=== PATIENT | male | born 1960 | race African-American/Black ===

== ENCOUNTER 2022-07-16 18:01 | Observation (INO) ==
[2022-07-16 18:27] LABS: Basophils % 0.4 % (0.0-0.8); Eosinophils # 0.1 10*3/uL (0.0-0.87); Eosinophils % 1.2 % (0.00-10.9); Hematocrit 43.4 VOL% (42.0-52.0); Hemoglobin 15.1 GM/DL (14.0-18.0); Immature Granulocytes % 0.1 %; Immature Granulocytes Absolute 0.01 #; Lymphocytes # 2.8 10*3/uL (1.4-4.0); Lymphocytes % 41.1 % (21.2-54.2); Mean Corpuscular HGB Conc 34.8 GM/DL (32-36); Mean Corpuscular Volume 84.3 FL (87-102); Mean Platelet Volume 10.1 FL (9.6-12.0); Monocytes # 0.4 10*3/uL (0.11-0.8); Monocytes % 6.2 % (1.7-12.7); Platelet Count 288 T/CUMM (130-400); Red Blood Count 5.15 MC/CUMM (3.8-5.5); Red Cell Distribution Width 13.4 % (9.3-17.3); White Blood Count 6.9 T/CUMM (4-12)
[2022-07-16 18:48] LABS: Albumin 4.5 G/DL (3.4-5.0); Bilirubin,Total 0.4 MG/DL (0.20-1.00); Osmolality,Calculated 276.1 MOS/KG (273-304); Potassium 3.8 MMOL/L (3.5-5.1); Total Protein 8.3 G/DL (6.4-8.2)
[2022-07-16] MEDS ORDERED: NITROGLYCERIN SL 0.4 MG TABLET SL PRN (18:50)
[2022-07-16] MEDS ORDERED: ONDANSETRON 4 MG/2 ML VIAL IV ONE (18:57)
[2022-07-16] MEDS ORDERED: fentaNYL 100 MCG/2 ML VIAL IV STA (18:57)
[2022-07-16] MEDS ORDERED: DOCUSATE SODIUM 100 MG CAPSULE PO PRN (20:05)
[2022-07-16] MEDS ORDERED: DEXTROSE 50% 25 GM/50 ML VIAL IV PRN (20:05)
[2022-07-16] MEDS ORDERED: GLUCAGON 1 MG VIAL IM PRN (20:05)
[2022-07-16] MEDS ORDERED: ONDANSETRON 4 MG/2 ML VIAL IV PRN (20:05)
[2022-07-16] MEDS ORDERED: ACETAMINOPHEN 325 MG TABLET PO PRN (20:05)
[2022-07-16] MEDS ORDERED: DEXTROSE 10% 250 ML BAG IV PRN (20:19)
[2022-07-16 20:34] LABS: Thyroid Stimulating Hormone 0.506 uIU/ml (0.358-3.74)
[2022-07-16] MEDS ORDERED: ATORVASTATIN 20 MG TABLET PO SCH (21:00)
[2022-07-16] MEDS: ASPIRIN 325 MG TABLET PO SCH (21:12)
[2022-07-16] MEDS: ENOXAPARIN 40 MG/0.4 ML SYRINGE SUBCUT SCH (21:13)
[2022-07-16] MEDS: METOPROLOL TARTRATE 25 MG TABLET PO SCH (21:13)
[2022-07-16] MEDS: INSULIN LISPRO 100 UNIT/ML SUBCUT SCH (23:33)
[2022-07-17 05:38] LABS: Basophils # 0.1 10*3/uL (0.0-0.2); Basophils % 0.7 % (0.0-0.8); Eosinophils # 0.3 10*3/uL (0.0-0.87); Eosinophils % 3.1 % (0.00-10.9); Hematocrit 40.6 VOL% (42.0-52.0); Immature Granulocytes % 0.2 %; Immature Granulocytes Absolute 0.02 #; Lymphocytes # 4.8 10*3/uL (1.4-4.0); Mean Corpuscular HGB Conc 34.5 GM/DL (32-36); Mean Corpuscular Volume 86.6 FL (87-102); Mean Platelet Volume 10.8 FL (9.6-12.0); Monocytes # 0.7 10*3/uL (0.11-0.8); Monocytes % 8.1 % (1.7-12.7); Neutrophils % 35.9 % (38.7-73.9); Platelet Count 258 T/CUMM (130-400); Red Blood Count 4.69 MC/CUMM (3.8-5.5); Red Cell Distribution Width 13.3 % (9.3-17.3); White Blood Count 9.1 T/CUMM (4-12)
[2022-07-17 05:55] LABS: Calcium 9.5 MG/DL (8.5-10.1); Osmolality,Calculated 278.7 MOS/KG (273-304); Potassium 3.5 MMOL/L (3.5-5.1); Risk Ratio 7.67; VLDL Cholesterol 48.2 MG/DL
[2022-07-17 07:24] LABS: Anisocytosis Slight; Atypical Lymphocytes Few; Eosinophils 3 % (0-10); Lymphocytes 58 % (20-55); Platelet Estimate Normal; Total Cells Counted 100
[2022-07-17] MEDS ORDERED: ALUM/MAG/SIMETH/LIDO VISC 1:1 30 ML BOTTLE PO ONE (08:17)
[2022-07-17] MEDS: INSULIN LISPRO 100 UNIT/ML SUBCUT SCH ×4 (08:20→20:58)
[2022-07-17] MEDS: ASPIRIN 325 MG TABLET PO SCH (08:27)
[2022-07-17] MEDS: PANTOPRAZOLE 40 MG TABLET PO SCH (08:27)
[2022-07-17] MEDS: METOPROLOL TARTRATE 25 MG TABLET PO SCH ×2 (08:27→20:57)
[2022-07-17] MEDS: LORazepam 1 MG TABLET PO PRN ×2 (14:20→20:57)
[2022-07-17] MEDS: metFORMIN 500 MG TABLET PO SCH (16:21)
[2022-07-17] MEDS: ENOXAPARIN 40 MG/0.4 ML SYRINGE SUBCUT SCH (20:57)
[2022-07-17] MEDS ORDERED: amLODIPine 5 MG TABLET PO SCH (21:00)
[2022-07-17] MEDS ORDERED: LORazepam 1 MG TABLET PO SCH (21:00)
[2022-07-17] MEDS ORDERED: ATORVASTATIN 80 MG TABLET PO SCH (21:00)
[2022-07-18] MEDS: INSULIN LISPRO 100 UNIT/ML SUBCUT SCH (07:50)
[2022-07-18 07:51] VITALS: BP 123/90
[2022-07-18] MEDS: PANTOPRAZOLE 40 MG TABLET PO SCH (08:39)
[2022-07-18] MEDS: metFORMIN 500 MG TABLET PO SCH (08:39)
[2022-07-18] MEDS: METOPROLOL TARTRATE 25 MG TABLET PO SCH (08:39)
[2022-07-18] MEDS ORDERED: LOSARTAN 50 MG TABLET PO SCH (09:00)
[2022-07-18] MEDS ORDERED: ISOSORBIDE MONONITRATE 30 MG TABLET PO SCH (09:00)
[2022-07-18] MEDS ORDERED: ASPIRIN EC 81 MG TABLET PO SCH (09:00)
== END 2022-07-18 10:07 | disposition home or self-care (01) ==
LOC: N.EDINP 18:01 → N.ED 18:01 → SUATTDRO 20:03 → N.EDINP 22:39 → N.2W 23:09
PROVIDERS: ADMIT Internal Medicine; ATTEND Internal Medicine Geriatric Medicine